=== PATIENT | female | born 1980 | race African-American/Black ===

== ENCOUNTER 2016-10-05 09:53 | Emergency (ER) | payer MEDICAID, OTHER ==
[~2016-10-05] VITALS: Ht 167.6 cm; Wt 104.3 kg
[~2016-10-05 09:53] MED LIST: COLACE100 MG ORAL; FERROUS SULFAT325 MG ORAL
[2016-10-05 10:00] VITALS: BP 188/84
[2016-10-05] MEDS ORDERED: NORVASC10 MG ORAL (10:14)
[2016-10-05 10:23] VITALS: BP 171/83
--- NOTE | 2016-10-05 10:28 | Emergency Room Report ---
History of Present Illness General Chief Complaint: Hypertension Source: Patient Present Illness HPI 36YOF BIBEMS after [facility] refused to transport patient to wound care appointment because "BP was yenny-high." SBP was allegedly 195. Patient took metoprolol today. Hasnt had Norvasc 10mg in 1 week. Denies chest pain, SOB, abd pain, headache, fever/chills, urinary complaints Patient wants to go to wound care appt Allergies: Coded Allergies: PIPERACILLIN (Unverified Allergy, Mild, 10/05/16) POTASSIUM (Unverified Allergy, Mild, 10/05/16) SILVER (Unverified Allergy, Mild, 10/05/16) SULFA (SULFONAMIDE ANTIBIOTICS) (Unverified Allergy, Mild, 10/05/16) TAZOBACTAM (Unverified Allergy, Mild, 10/05/16) VANCOMYCIN (Unverified Allergy, Mild, 10/05/16) HYDROMORPHONE (Unverified Allergy, Unknown, 10/05/16) Patient History Past Medical History: see triage record, old chart reviewed, HTN Past Surgical History: other Pertinent Family History: none Social History: Denies: alcohol use, drug use, smoking Last Menstrual Period: 09/15/16 Now: No : 2 Para: 0 Immunizations: UTD Reviewed Nursing Documentation: PMH: Agreed, PSxH: Agreed Nursing Documentation-PMH Hx Diabetes: Yes Review of Systems All Other Systems: negative except mentioned in HPI Physical Exam Vital Signs Date Time Temp Pulse Resp B/P Pulse Ox O2 Delivery O2 Flow Rate FiO2 10/05/16 09:41 98.4 99 18 168/99 99 Room Air Sp02 EP Interpretation: reviewed, abnormal General Appearance: normal inspection, well appearing, no apparent distress, alert, GCS 15, non-toxic, obese, other - talking on phone in stretcher Head: normocephalic, atraumatic 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 ENT: normal ENT inspection, hearing grossly normal, normal voice Neck: normal inspection, full range of motion, supple, no bony tend Respiratory: normal inspection, lungs clear, normal breath sounds, no respiratory distress, no retraction, no wheezing Cardiovascular #1: regular rate, rhythm, no edema Gastrointestinal: normal inspection, normal bowel sounds, non tender, soft, no guarding, no hernia Genitourinary: no CVA tenderness Musculoskeletal: normal inspection, back normal, normal range of motion, Maureen' s Sign negative Neurologic: normal inspection, alert, oriented x3, responsive, operations agent III-XII nml as tested, speech normal Psychiatric: normal inspection, judgement/insight normal, mood/affect normal Skin: normal inspection, normal color, other - Bilateral feet covered with kerlex, bandages. No appreciable warrmth or sign of infection Medical Decision Making Diagnostic Impression: Primary Impression: Hypertension Qualified Codes: I10 - Essential (primary) hypertension ER Course Asymptomatic hypertension - Likely d/t medication non-compliance - Was given her AM dose of Norvasc here and Rx for 1 month - No clinical signs of CVA, ME or other end-organ damage - Per ACEP decision rules, tx not recommended for asymptomatic HTN in the ED - acute lowering of what is likely chronically elevated BP could be to the detriment of the patient - [facility] called to transport patient to wound care appt Last Vital Signs Date Time Temp Pulse Resp B/P Pulse Ox O2 Delivery O2 Flow Rate FiO2 10/05/16 10:00 98.4 99 18 188/84 99 Room Air Status: improved Disposition: HOME, SELF-CARE Condition: Improved Scripts Amlodipine Besylate (Norvasc) 10 Mg Tablet 10 MG ORAL DAILY for 30 Days, #30 TAB Prov: ELDER GILLILAND M.D. 10/05/16 Patient Instructions: Managing Your High Blood Pressure ELDER GILLILAND M.D. Oct 05, 2016 10:28
== END 2016-10-05 10:45 | disposition home or self-care (01) ==
LOC: EDBD 09:53 → EMR 10:23
DX: I10 Essential (primary) hypertension (principal); E11.9 Type 2 diabetes mellitus without complications; Z88.2 Allergy status to sulfonamides; Z88.8 Allergy status to other drugs, medicaments and biological substances
CPT/HCPCS: 99283

== ENCOUNTER 2016-11-09 10:13 | Emergency (ER) | payer OTHER ==
[~2016-11-09] VITALS: Ht 167.6 cm; Wt 104.3 kg
[~2016-11-09 10:13] MED LIST changes: +AMLODIPINE BES2.5 MG ORAL; +METOCLOPRAMIDE H5 M1 ORAL; +NORVASC10 MG ORAL
[2016-11-09 10:19] VITALS: BP 158/91
[2016-11-09 11:04] LABS: BASOPHILS % (AUTO) 0.9 % (0.0-2.0); EOSINOPHILS % (AUTO) 2.6 % (0.0-3.0); LYMPHOCYTES % (AUTO) 16.1 % (20.0-45.0); MEAN CORPUSCULAR HEMOGLOBIN 26.8 PG (27.0-31.0); MEAN CORPUSCULAR HGB CONC 31.7 G/DL (32.0-36.0); MEAN CORPUSCULAR VOLUME 84 FL (80-99); MEAN PLATELET VOLUME 5.2 FL (6.5-10.1); MONOCYTES % (AUTO) 2.4 % (1.0-10.0); PLATELET COUNT 393 K/UL (150-450); RED BLOOD COUNT 3.19 M/UL (4.20-5.40); RED CELL DISTRIBUTION WIDTH 12.5 % (11.6-14.8); WHITE BLOOD COUNT 13.8 K/UL (4.8-10.8)
[2016-11-09 11:14] LABS: ALANINE AMINOTRANSFERASE 5 U/L (3-33); ALBUMIN/GLOBULIN RATIO 0.6 (1.0-2.7); ANION GAP 18 (5-15); ASPARTATE AMINO TRANSFERASE 9 U/L (5-40); CALCIUM 7.5 mg/dL (8.6-10.2); CARBON DIOXIDE 18 mEQ/L (20-30); CHLORIDE 101 mEQ/L (98-107); HEMOLYSIS 25; POTASSIUM 5.1 mEQ/L (3.4-4.9); SODIUM 137 mEQ/L (135-145); TOTAL PROTEIN 7.9 g/dL (6.6-8.7); TROPONIN I < 0.30 ng/mL (<=0.30)
--- NOTE | 2016-11-09 11:44 | Emergency Room Report ---
History of Present Illness General Chief Complaint: Hypertension Source: Patient, EMS Present Illness HPI The patient was being picked up from home for transport to her typical wound care. The patient has a decubitus ulcer that she gets regular wound care for her. She also has had multiple amputations and has wounds on her stumps. She has a history of diabetes since childhood and has had uncontrolled blood sugars and suffered many complications related to this. Regardless, on arrival the transport team refused to transfer the patient because her systolic blood pressure on their reading was 200 systolic. The patient states she has no symptoms. On arrival he her, her blood pressure systolic is 150s. Patient states she's also had a lot of congestion lately. She denies fever or chills. She denies nausea or vomiting. There are no other complaints. Allergies: Coded Allergies: PIPERACILLIN (Unverified Allergy, Mild, 10/05/16) POTASSIUM (Unverified Allergy, Mild, 10/05/16) SILVER (Unverified Allergy, Mild, 10/05/16) SULFA (SULFONAMIDE ANTIBIOTICS) (Unverified Allergy, Mild, 10/05/16) TAZOBACTAM (Unverified Allergy, Mild, 10/05/16) VANCOMYCIN (Unverified Allergy, Mild, 10/05/16) HYDROMORPHONE (Unverified Allergy, Unknown, 10/05/16) Patient History Past Medical History: see triage record, DM, HTN, CHF, renal disease Social History: Denies: alcohol use, drug use, smoking Last Menstrual Period: END OF OCTOBER Now: No Reviewed Nursing Documentation: PMH: Agreed, PSxH: Agreed Nursing Documentation-PMH Hx Diabetes: Yes Review of Systems All Other Systems: negative except mentioned in HPI Physical Exam Vital Signs Date Time Temp Pulse Resp B/P Pulse Ox O2 Delivery O2 Flow Rate FiO2 11/09/16 10:06 90 154/90 Room Air 11/09/16 10:19 19 11/09/16 10:19 100 Sp02 EP Interpretation: reviewed, normal General Appearance: no apparent distress, alert, GCS 15, non-toxic Head: normocephalic, atraumatic ENT: hearing grossly normal, normal pharynx, no angioedema, normal voice Neck: full range of motion, supple/symm/no masses Respiratory: chest non-tender, lungs clear, normal breath sounds, speaking full sentences Cardiovascular #1: regular rate, rhythm, no edema Gastrointestinal: normal bowel sounds, non tender, soft, non-distended, no guarding, no rebound, other - obese Rectal: deferred Musculoskeletal: other - Amputations with dressings, BLE. At baseline. Neurologic: alert, oriented x3, responsive, motor strength/tone normal, sensory intact, speech normal Psychiatric: judgement/insight normal, memory normal, mood/affect normal, no suicidal/homicidal ideation Skin: other - Wounds dressed. See RN skin exam. Medical Decision Making Diagnostic Impression: Primary Impression: Hypertension Additional Impressions: Renal failure (ARF), acute on chronic Hyperkalemia ER Course Patient presented for asymptomatic hypertension. The report was that the patient has a blood pressure of 200. However, during the patient's entire ED course here she has had a systolic blood pressure in the 150s. She requested that the wound on her back undergo a dressing change. This was done by the RN. Please see the RN note.The patient's laboratory workup to show a creatinine of 5.0. The patient's potassium is 5.1. The patient reports that she does not get dialysis. She does note that her renal function had been worsening. I do not have a comparison creatinine later than 2013. In 2014 the patient's creatinine was 2. I will admit this patient for concern of worsening kidney failure and hyperkalemia. The patient's insurance requested her transfer to [facility]. She was stable for transfer. Labs Test 11/09/16 10:45 White Blood Count 13.8 K/UL (4.8-10.8) Red Blood Count 3.19 M/UL (4.20-5.40) Hemoglobin 8.5 G/DL (12.0-16.0) Hematocrit 26.9 % (37.0-47.0) Mean Corpuscular Volume 84 FL (80-99) Mean Corpuscular Hemoglobin 26.8 PG (27.0-31.0) Mean Corpuscular Hemoglobin Concent 31.7 G/DL (32.0-36.0) Red Cell Distribution Width 12.5 % (11.6-14.8) Platelet Count 393 K/UL (150-450) Mean Platelet Volume 5.2 FL (6.5-10.1) Neutrophils (%) (Auto) 78.0 % (45.0-75.0) Lymphocytes (%) (Auto) 16.1 % (20.0-45.0) Monocytes (%) (Auto) 2.4 % (1.0-10.0) Eosinophils (%) (Auto) 2.6 % (0.0-3.0) Basophils (%) (Auto) 0.9 % (0.0-2.0) Sodium Level 137 mEQ/L (135-145) Potassium Level 5.1 mEQ/L (3.4-4.9) Chloride Level 101 mEQ/L (98-107) Carbon Dioxide Level 18 mEQ/L (20-30) Anion Gap 18 (5-15) Blood Urea Nitrogen 64 mg/dL (7-23) Creatinine 5.0 mg/dL (0.5-0.9) Estimat Glomerular Filtration Rate 12.0 mL/min (>60) Glucose Level 242 mg/dL (74-106) Calcium Level 7.5 mg/dL (8.6-10.2) Total Bilirubin < 0.2 mg/dL (0.0-1.2) Aspartate Amino Transf (AST/SGOT) 9 U/L (5-40) Alanine Aminotransferase (ALT/SGPT) 5 U/L (3-33) Alkaline Phosphatase 112 U/L (35-104) Total Creatine Kinase 73 U/L (26-140) Troponin I < 0.30 ng/mL (<=0.30) Total Protein 7.9 g/dL (6.6-8.7) Albumin 3.1 g/dL (3.5-5.2) Globulin 4.8 g/dL Albumin/Globulin Ratio 0.6 (1.0-2.7) EKG Diagnostic Results Rate: normal Rhythm: NSR ST Segments: no acute changes Rhythm Strip Diag. Results EP Interpretation: yes Rate: 80's Rhythm: NSR, no PVC's, no ectopy Chest X-Ray Diagnostic Results Chest X-Ray Diagnostic Results : Chest X-Ray Ordered: Yes # of Views/Limited/Complete: 1 View Indication: Other - HTN EP Interpretation: No Interpretation: no consolidation, no effusion, no pneumothorax, no acute cardiopulmonary disease Impression: No acute disease Interpreting ER Provider: Nolvia Last Vital Signs Date Time Temp Pulse Resp B/P Pulse Ox O2 Delivery O2 Flow Rate FiO2 11/09/16 10:19 89 19 158/91 100 Room Air Disposition: XFER SHT-TRM HOSP Condition: Stable Referrals: [employer] [facility] BJ,VANDA (PCP) YUMIKO SNYDER D.O. Nov 09, 2016 11:44
[2016-11-09] MEDS ORDERED: oxyCODONE HCL/Acetaminophen 5/325mg ORAL ONE (11:45)
[2016-11-09 11:50] VITALS: BP 139/78
[2016-11-09 12:00] LABS: CKMB < 1.5 ng/mL (< 3.8)
[2016-11-09 13:19] VITALS: BP 127/73
[2016-11-09 14:30] VITALS: BP 138/77
[2016-11-09 14:38] VITALS: BP 138/77
[2016-11-09 14:50] LABS: APPEARANCE,URINE SLIGHTLY CLOUDY; KETONES,URINE NEGATIVE (NEGATIVE); LEUKOCYTE ESTERASE ,URINE NEGATIVE (NEGATIVE); NITRITE,URINE NEGATIVE (NEGATIVE); PH,URINE 6 (4.5-8.0); PROTEIN,URINE 3+ (NEGATIVE); UROBILINOGEN,URINE NORMAL MG/DL (0.0-1.0)
[2016-11-09 15:00] LABS: BACTERIA,URINE OCCASIONAL /HPF; RBC,URINE 40-60 /HPF (0 - 2); SQUAMOUS EPITHELIAL CELL,UR OCCASIONAL /LPF (NONE/OCC); WBC,URINE 0-2 /HPF (0 - 2)
--- NOTE | 2016-11-09 16:10 | Diagnostic Imaging Report ---
Indication: Chest pain Technique: One view of the chest Comparison: none Findings: Body habitus limits evaluation. Lungs and pleural spaces are grossly clear. Heart size is normal. Left hemidiaphragm is elevated Impression: No acute process
--- NOTE | 2016-11-15 19:08 | Cardiology Report ---
APPROVED REPORT EKG Measurement Heart [id number] ND [id number] Normal sinus rhythm Normal ECG
== END 2016-11-09 14:28 | disposition short-term general hospital (02) ==
LOC: EDBD 10:13 → EMR 10:45
DX: I10 Essential (primary) hypertension (principal); N17.9 Acute kidney failure, unspecified; E87.5 Hyperkalemia; E11.9 Type 2 diabetes mellitus without complications; Z88.8 Allergy status to other drugs, medicaments and biological substances; Z88.2 Allergy status to sulfonamides; Z88.1 Allergy status to other antibiotic agents
CPT/HCPCS: 36415; 71010; 80053; 80300; 81003; 82550; 82553; 84484; 85025; 93005; 96360; 96374